=== PATIENT | female | born 1945 | race African-American/Black ===

== ENCOUNTER 2022-05-30 14:34 | Emergency (ER) | payer MEDICARE, OTHER ==
[~2022-05-30 14:34] MED LIST: ANTIVERT12.5 MG PO; MACROBID100 MG PO; NORCO 5-325 TA1 EACH PO; PRILOSEC20 MG PO; PYRIDIUM200 MG PO
[2022-05-30 16:31] LABS: BASOPHIL 0.4 % (0-2); EOSINOPHIL 1.3 % (0-7); HCT 40.9 % (37.0-47.0); HGB 13.4 g/dl (12.5-16.0); LYMPHOCYTE 24.7 % (15-48); MCH 30.5 pg (25.0-31.0); MCHC 32.8 g/dL (32.0-36.0); MCV 93.2 fL (78.0-100.0); MONOCYTE 6.1 % (0-12); MPV 11.3 fL (6.0-9.5); NEUTROPHIL 67.3 % (41-80); NRBC 0; PLT 264 K/uL (150-400); RBC 4.39 M/uL (4.20-5.40); RDW 13.1 % (11.5-14.0); WBC 8.9 K/uL (4.0-10.5)
[2022-05-30 16:52] LABS: BUN/CREAT RATIO (CALC) 15.8 RATIO; CREATININE 0.95 mg/dL (0.51-0.95); POTASSIUM 3.9 mmol/L (3.5-5.1)
[2022-05-30 18:01] LABS: BILIRUBIN NEGATIVE (NEGATIVE); BLOOD TRACE-LYSED Ery/uL (NEGATIVE); CLARITY CLEAR (CLEAR); COLOR YELLOW (YELLOW); GLUCOSE (U) NORMAL (NORMAL); LEUKOCYTES 1+ Leu/uL (NEGATIVE); NITRITE NEGATIVE (NEGATIVE); PROTEIN 1+ mg/dL (NEGATIVE); SPECIFIC GRAVITY <=1.005 (1.001-1.030); UROBILINOGEN 0.2 mg/dL (0.2-1.0)
[2022-05-30] MEDS ORDERED: ONDANSETRON ODT4 MG PO (18:04)
[2022-05-30 18:10] LABS: BACTERIA TRACE
[2022-05-30 18:11] LABS: URINARY RBC RARE
[2022-05-30] MEDS ORDERED: ANTIVERT25 MG PO (19:59)
== END 2022-05-30 20:20 | disposition home or self-care (01) ==
LOC: FER 14:34
PROVIDERS: Nurse Practitioner Family
DX: H81.10 Benign paroxysmal vertigo, unspecified ear (principal); I10 Essential (primary) hypertension; E78.5 Hyperlipidemia, unspecified; E03.9 Hypothyroidism, unspecified; Z79.890 Hormone replacement therapy; Z79.899 Other long term (current) drug therapy
CPT/HCPCS: 36415; 70450; 80048; 81001; 85025; 93005; J7030